=== PATIENT | female | born 1990 | race Caucasian/White ===

== ENCOUNTER → 2019-12-07 10:12 | Outpatient (BNVA) | payer MEDICARE, MEDICAID, SELFPAY | PROVIDERS: Family Provider Family Medicine; PCP Family Medicine; Visit Provider Nurse Practitioner Family | DX: Z78.9 Other specified health status (principal) | CPT/HCPCS: 71046; 80053; 80061; 81025; 84443; 85025 ==

== ENCOUNTER → 2020-11-01 11:24 | Outpatient (BNVA) | payer MEDICARE, MEDICAID, SELFPAY | PROVIDERS: Family Provider Family Medicine; PCP Nurse Practitioner Family; Visit Provider Nurse Practitioner Family | DX: Z20.828 Contact with and (suspected) exposure to other viral communicable diseases (principal); J06.9 Acute upper respiratory infection, unspecified; Z30.42 Encounter for surveillance of injectable contraceptive | CPT/HCPCS: 87635 ==

== ENCOUNTER → 2020-12-11 10:15 | Outpatient (BNVA) | payer MEDICARE, MEDICAID, SELFPAY | PROVIDERS: Family Provider Family Medicine; PCP Nurse Practitioner Family; Visit Provider Nurse Practitioner Family | DX: Z30.42 Encounter for surveillance of injectable contraceptive (principal); Z13.6 Encounter for screening for cardiovascular disorders; Z00.00 Encounter for general adult medical examination without abnormal findings; Z68.37 Body mass index [BMI] 37.0-37.9, adult | CPT/HCPCS: 80053; 80061; 84443; 85025 ==

== ENCOUNTER → 2021-07-16 10:04 | Outpatient (BNVA) | payer MEDICARE, MEDICAID, SELFPAY | PROVIDERS: Family Provider Family Medicine; PCP Nurse Practitioner Family; Visit Provider Nurse Practitioner Family | DX: Z00.00 Encounter for general adult medical examination without abnormal findings (principal); F60.9 Personality disorder, unspecified; F31.9 Bipolar disorder, unspecified; Z79.899 Other long term (current) drug therapy | CPT/HCPCS: 80053; 80061; 85025 ==

== ENCOUNTER → 2021-12-11 09:56 | Outpatient (BNVA) | payer MEDICARE, MEDICAID, SELFPAY | PROVIDERS: Family Provider Family Medicine; PCP Nurse Practitioner Family; Visit Provider Nurse Practitioner Family | DX: R76.11 Nonspecific reaction to tuberculin skin test without active tuberculosis (principal) | CPT/HCPCS: 71046 ==

== ENCOUNTER → 2022-01-01 08:39 | Outpatient (BNVA) | payer MEDICARE, MEDICAID, SELFPAY | PROVIDERS: Family Provider Family Medicine; PCP Nurse Practitioner Family; Visit Provider Nurse Practitioner Family | DX: Z00.00 Encounter for general adult medical examination without abnormal findings (principal); Z13.6 Encounter for screening for cardiovascular disorders; Z30.42 Encounter for surveillance of injectable contraceptive | CPT/HCPCS: 80053; 80061; 85025 ==

== ENCOUNTER → 2022-12-11 09:35 | Outpatient (BNVA) | payer MEDICARE, MEDICAID, SELFPAY | PROVIDERS: Family Provider Family Medicine; PCP Nurse Practitioner Family; Visit Provider Nurse Practitioner Family | DX: Z01.419 Encounter for gynecological examination (general) (routine) without abnormal findings; Z13.6 Encounter for screening for cardiovascular disorders; F41.9 Anxiety disorder, unspecified; F32.A Depression, unspecified | CPT/HCPCS: 71046; 80053; 80061; 84443; 85025; 88175 ==

== ENCOUNTER → 2023-05-28 11:35 | Outpatient (BNVA) | payer MEDICARE, MEDICAID, SELFPAY | PROVIDERS: Family Provider Family Medicine; PCP Nurse Practitioner Family; Visit Provider Nurse Practitioner Family | DX: Z13.6 Encounter for screening for cardiovascular disorders (principal); F31.9 Bipolar disorder, unspecified; F60.9 Personality disorder, unspecified | CPT/HCPCS: 80053; 80061; 85025 ==

== ENCOUNTER → 2023-12-13 10:14 | Outpatient (BNVA) | payer MEDICARE, MEDICAID, SELFPAY | PROVIDERS: Family Provider Family Medicine; PCP Nurse Practitioner Family; Visit Provider Nurse Practitioner Family | DX: Z00.00 Encounter for general adult medical examination without abnormal findings (principal); Z13.6 Encounter for screening for cardiovascular disorders | CPT/HCPCS: 71046; 71047; 80053; 80061; 85025 ==

== ENCOUNTER → 2024-02-22 10:25 | Outpatient (BNVA) | payer MEDICARE, MEDICAID, SELFPAY | PROVIDERS: Family Provider Family Medicine; PCP Nurse Practitioner Family; Visit Provider Nurse Practitioner Family | DX: Z30.42 Encounter for surveillance of injectable contraceptive (principal) | CPT/HCPCS: 81025 ==

== ENCOUNTER → 2024-05-16 09:34 | Outpatient (BNVA) | payer MEDICARE, MEDICAID, SELFPAY | PROVIDERS: Family Provider Family Medicine; PCP Nurse Practitioner Family; Visit Provider Nurse Practitioner Family | DX: Z13.6 Encounter for screening for cardiovascular disorders (principal) | CPT/HCPCS: 80053; 80061; 81025; 85025 ==

== ENCOUNTER 2024-06-21 11:35 | Emergency (ER) | payer MEDICARE, MEDICAID, SELFPAY ==
--- NOTE | 2024-06-21 11:35 | ECG_ITS ---
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
[2024-06-21 11:37] VITALS: BP 110/85; PULSE 98; RESP 18; TEMP 37.2; O2SAT 96; BMI 37.8
--- NOTE | 2024-06-21 11:39 | XRR_ITS ---
PROCEDURE INFORMATION: Exam: XR Chest Exam date and time: 06/21/2024 11:48 AM Age: 33 years old Clinical indication: Pain; Angina pectoris; Additional info: Cp TECHNIQUE: Imaging protocol: Radiologic exam of the chest. Views: 1 view. COMPARISON: CR XR chest 3V [id number] 12/13/2023 10:18 AM FINDINGS: Lungs: Unremarkable. No consolidation. Pleural spaces: Unremarkable. No pleural effusion. No pneumothorax. Heart/Mediastinum: Unremarkable. No cardiomegaly. Bones/joints: Unremarkable. XR/XR chest 1V portable [id number] IMPRESSION: No acute findings.
--- NOTE | 2024-06-21 11:41 | ED_ITS ---
HPI - Chest Pain 2 General: Chief Complaint: Chest Pain Stated Complaint: Chest pain , High BP, Dizzy Time Seen by Provider: 06/21/24 11:36 Source: EMS Mode of arrival: EMS Limitations: no limitations History of Present Illness: 33-year-old female is here from [facility] for last 2 days she has been having some chest pain with some pain with deep inspiration. She had a mild headache as well states pain is currently a 6 out of 10 she received nitro aspirin and route denies any improvement. Denies any cough or fever. Associated symptoms: Deny abdominal pain, dyspnea, fever(s), nausea or vomiting Related Data Home Medications Medication Instructions Recorded Confirmed aripiprazole 15 mg tablet (Abilify) 15 mg PO QDAY 10/26/19 05/16/24 bupropion HCl 150 mg tablet,12 hr 150 mg PO QAM 10/26/19 05/16/24 sustained-release (Wellbutrin SR) escitalopram oxalate 20 mg tablet 20 mg PO QDAY 10/26/19 05/16/24 (Lexapro) risperidone 3 mg tablet (Risperdal) 3 mg PO QDAY 10/26/19 05/16/24 Previous Rx's Medication Instructions Recorded acetaminophen 325 mg tablet See Rx Instructions .Route 12/13/23 .COMPLEX #60 tabs albuterol sulfate 90 mcg/actuation 2 puff inhalation QID PRN 12/13/23 aerosol inhaler (Ventolin HFA) shortness of breath or wheezing #18 grams benzocaine 20 %-menthol 0.1 %-zinc 1 ea mucous membrane .every six 12/13/23 chloride 0.15 % mucosal gel hours PRN mouth pain #5.1 grams (Orajel 3X Mouth Sores) bismuth subsalicylate 525 mg/15 mL 525 mg (15 mL) PO Q30M PRN 12/13/23 oral suspension (Pepto-Bismol Max diarrhea #[address]) calcium carbonate 300 mg PO BID #60 tabs 12/13/23 cetirizine 10 mg tablet (Zyrtec) 10 mg PO DAILY PRN allergy 12/13/23 symptoms #30 tabs dextromethorphan-guaifenesin 5 10 ml PO Q6H PRN cough #200 mL 12/13/23 mg-100 mg/5 mL oral liquid (Robitussin Cough-Chest Congestion DM) diphenhydramine HCl 25 mg capsule 50 mg (2 x 25 mg) PO Q6H PRN 12/13/23 (Benadryl) itching #60 caps ibuprofen 200 mg capsule 400 mg (2 x 200 mg) PO Q6H PRN 12/13/23 fever or pain #100 caps magnesium hydroxide 400 mg/5 mL 15 ml PO QID PRN constipation #355 12/13/23 oral suspension mL medroxyprogesterone 150 mg/mL See Rx Instructions .Route 12/13/23 intramuscular suspension .COMPLEX #1 mL polyvinyl alcohol-povidone 0.5 2 drp ophthalmic (eye) QID PRN dry 12/13/23 %-0.6 % eye drops (Artificial eye(s) #15 mL Tears (polyvinyl alcohol/povidone)) One Daily Wmn Tab 21st 100 See Rx Instructions .Route 12/28/23 .COMPLEX #100 ea Allergies Allergy/AdvReac Type Severity Reaction Status Date / Time tuberculin,PPD,multi-puncture Allergy Unknown Verified 02/22/24 10:19 Review of Systems 2 Const: Denies: fever(s), chills, body aches or change in appetite ENMT: Denies: throat pain or dental pain Card: Reports: chest pain Resp: Denies: dyspnea GI: Denies: abdominal pain, nausea, vomiting or diarrhea Musc: Denies: neck pain or back pain Skin/Breast: Denies: rash Neuro: Reports: headache(s) PFSH ED 2 PFSH: Medical History (Updated 06/21/24 @ 14:28 by Dionicio Flores MD) Depot contraception Radial head fracture Social History Smoking and tobacco/nicotine status: never used tobacco/nicotine Second hand smoke exposure: No Alcohol intake: never Substance/Drug Use: never Caregiver/support person: Yes Lives independently: No Housing: Other Details: [facility] Marital status: Single service: No Current occupational status: disabled Current gender identity: Female Physical Exam 2 Const: COMMON NORMALS: no acute distress, patient oriented x3 and healthy appearing HENMT: COMMON NORMALS: normocephalic and atraumatic HEAD & SCALP: n ormocephalic and atraumatic Neck/C-Spine: COMMON NORMALS: full ROM and supple Chest: COMMONS NORMALS: normal inspection of the chest Resp: COMMON NORMALS: normal respiratory effort, No retractions, No use of accessory muscles and clear to auscultation bilaterally AUSCULTATION: clear to auscultation bilaterally Cardio: COMMON NORMALS: regular rate, regular rhythm and No murmurs present (Cardio) RATE: regular rate RHYTHM: regular rhythm GI: COMMON NORMALS: Normal to inspection, nondistended, normoactive bowel sounds present, Soft to palpation, non-tender and no masses PALPATION: Yes Soft to palpation Extremity: COMMON NORMALS: normal to inspection and full ROM Neuro: COMMON NORMALS: patient oriented x3, moves all extremities and no focal motor deficits Psych: COMMON NORMALS: mental status grossly normal, Normal thought process present and cooperative THOUGHT PROCESS: Normal thought process present Skin: COMMON NORMALS: no rashes or lesions noted and no wounds GENERAL SKIN EXAM: no rashes or lesions noted Course 2 Vital Signs: Vital signs: Vital Signs Temperature 98.9 F 06/21/24 11:37 Pulse Rate 98 06/21/24 11:37 Respiratory Rate 18 06/21/24 12:07 Blood Pressure 110/85 06/21/24 11:37 Pulse Oximetry 96 06/21/24 11:37 Oxygen Delivery Me thod Room Air 06/21/24 11:37 MDM - Chest Pain Medical Decision Making Patient presents here with chest pains atypical in nature patient's troponin and CT scan here are all normal her pains improved she stable for discharge follow- up PCP return if worsening. Medical Records I reviewed the patient's medical records. Lab Data I reviewed the patient's lab results. 06/21/24 11:51 06/21/24 11:51 Radiology Impressions Chest X-Ray 06/21/24 11:39 IMPRESSION: No acute findings. Chest CTA 06/21/24 12:38 IMPRESSION: No evidence of pulmonary embolus. Laboratory Results WBC 10.22 10^3/uL (3.29-11.43) 06/21/24 11:51 RBC 4.97 10^6/uL (3.85-5.65) 06/21/24 11:51 Hgb 14.10 g/dL (11.27-16.99) 06/21/24 11:51 Hct 43.6 % (36-47) 06/21/24 11:51 MCV 87.7 fl (85-98) 06/21/24 11:51 MCH 28.4 pg (27-33) 06/21/24 11:51 MCHC 32.3 g/dL (30-55) 06/21/24 11:51 RDW 14.9 % (12.1-15.1) 06/21/24 11:51 Plt Count 261 10^3/cmm (157-399) 06/21/24 11:51 MPV 8.5 fL (7.4-10.4) 06/21/24 11:51 Neut % (Auto) 60.6 % 06/21/24 11:51 Lymph % (Auto) 31.4 % 06/21/24 11:51 Foard % (Auto) 5.2 % 06/21/24 11:51 Eos % (Auto) 2.1 % 06/21/24 11:51 Baso % (Auto) 0.4 % 06/21/24 11:51 Neut # (Auto) 6.20 10^3/uL (1.8-7.7) 06/21/24 11:51 Lymph # (Auto) 3.2 10^3/uL (0.8-4.8) 06/21/24 11:51 Foard # (Auto) 0.5 10^3/uL (0.2-0.9) 06/21/24 11:51 Eos # (Auto) 0.2 10^3/uL (0.0-0.8) 06/21/24 11:51 Baso # (Auto) 0.0 10^3/uL (0.0-0.1) 06/21/24 11:51 Nucleated RBC % (auto) 0 % 06/21/24 11:51 Nucleated RBCs # 0.0 /100WBC 06/21/24 11:51 PT 13.30 SECONDS (12.1-14.9) 06/21/24 11:51 INR 0.98 (0.8-1.2) 06/21/24 11:51 D-Dimer 0.77 ug/mLFEU (0-0.59) H 06/21/24 11:51 Sodium 136 mmol/L (136-145) 06/21/24 11:51 Potassium 3.9 mmol/L (3.5-5.1) 06/21/24 11:51 Chloride 104 mmol/L (98-107) 06/21/24 11:51 Carbon Dioxide 17 mmol/L (22-29) L 06/21/24 11:51 Anion Gap 18.9 (5-19) 06/21/24 11:51 BUN 10 mg/dL (6-20) 06/21/24 11:51 Creatinine 0.6 mg/dL (0.5-0.9) 06/21/24 11:51 GFR Calculation 114.4 mL/min (90-130) 06/21/24 11:51 Glucose 156 mg/dL (65-115) H 06/21/24 11:51 Calculated Osmolality 284 mOsm/kg (285-295) L 06/21/24 11:51 Calcium 8.2 mg/dL (8.5-10.5) L 06/21/24 11:51 Total Bilirubin 0.3 mg/dL (0.15-1.2) 06/21/24 11:51 AST 14 U/L (0-32) 06/21/24 11:51 ALT 19 U/L (0-33) 06/21/24 11:51 Alkaline Phosphatase 76 U/L (35-105) 06/21/24 11:51 Troponin T Baseline < 6 ng/L (0-10) 06/21/24 11:51 Troponin T 120 Minute 6.34 ng/L (0-10) 06/21/24 13:56 Delta Troponin T 0.06679 ABS# (0-10) 06/21/24 13:56 Total Protein 7.2 g/dL (6.6-8.7) 06/21/24 11:51 Albumin 4.0 g/dL (3.5-5.2) 06/21/24 11:51 Globulin 3.2 g/dL (1.3-4.6) 06/21/24 11:51 Lipase 32 U/L (13-60) 06/21/24 11:51 HCG, Qual Negative (Negative) 06/21/24 11:51 All radiology interpretation(s) finalized by discharge EKG Data EKG 1: I personally reviewed and interpreted this EKG as follows: EKG interpretation date: 06/21/24 EKG interpretation time: 11:35 Interpretation: sinus tach hr [address] or t wave abnormalities qrs 76 qtc 402 Discharge Plan Discharge Patient Disposition: Home Clinical Impression: Chest pain Condition: Stable Prescriptions: No Action risperidone [Risperdal] 3 mg tablet 3 mg PO QDAY escitalopram oxalate [Lexapro] 20 mg tablet 20 mg PO QDAY aripiprazole [Abilify] 15 mg tablet 15 mg PO QDAY bupropion HCl [Wellbutrin SR] 150 mg tablet sustained-release 12 hr 150 mg PO QAM Artificial Tears(pvalch-povid) 0.5-0.6 % drops 2 drp ophthalmic (eye) QID PRN (Reason: dry eye(s)) Qty: 15 2RF ibuprofen 200 mg capsule 400 mg PO Q6H PRN (Reason: fever or pain) Qty: 100 5RF acetaminophen 325 mg tablet See Rx Instructions .ROUTE .COMPLEX Qty: 60 5RF Dose Instruction: take 650 MG (2 x 325) BY MOUTH FOUR TIMES DAILY NEEDED FOR PAIN Rx Instructions: take 650 MG (2 x 325) BY MOUTH FOUR TIMES DAILY NEEDED FOR PAIN Pepto-Bismol Max St 525 mg/15 mL suspension 525 mg PO Q30M PRN (Reason: diarrhea) Qty: 236 3RF cetirizine [Zyrtec] 10 mg tablet 10 mg PO DAILY PRN (Reason: allergy symptoms) Qty: 30 11RF diphenhydramine HCl [Benadryl] 25 mg capsule 50 mg PO Q6H PRN (Reason: itching) Qty: 60 5RF Robitussin Cough-Chest Donte DM 5-100 mg/5 mL liquid 10 ml PO Q6H PRN (Reason: cough) Qty: 200 3RF albuterol sulfate [Ventolin HFA] 90 mcg/actuation HFA aerosol inhaler 2 puff INHALATION QID PRN (Reason: shortness of breath or wheezing) Qty: 18 2RF calcium carbonate 300 mg (750 mg) tablet,chewable 300 mg PO BID Qty: 60 5RF Orajel 3X Mouth Sores 20-0.1-0.15 % gel 1 ea mucous membrane .every six hours PRN (Reason: mouth pain) Qty: 5.1 2RF magnesium hydroxide 400 mg/5 mL suspension 15 ml PO QID PRN (Reason: constipation) Qty: 355 2RF Rx Instructions: if no BM in 3 days medroxyprogesterone 150 mg/mL suspension See Rx Instructions .ROUTE .COMPLEX Qty: 1 4RF Dose Instruction: INJECT INTRAMUSCULARLY one ML (=150mg) every THREE MONTHS FOR contraception Rx Instructions: INJECT INTRAMUSCULARLY one ML (=150mg) every THREE MONTHS FOR contraception One Daily Wmn Tab 21st 100 See Rx Instructions .ROUTE .COMPLEX Qty: 100 3RF Dose Instruction: TAKE ONE TABLET BY MOUTH EVERY DAY Rx Instructions: TAKE ONE TABLET BY MOUTH EVERY DAY Discharge Orders: Discharge ED (Routine); Ordered 06/21/24 Ordered By: Dionicio Flores Referrals: Nickie Jc FNP [Primary Care Provider] - Sadaf Dillon MD [Family Provider] - Discharge Diet: Advance as tolerated Discharge Activity: Resume usual activity Patient Instructions: Chest Pain (ED) Coding Level of Care Code ED Botany Professor for Lisa Simmons
[2024-06-21 12:05] LABS: Basophils % 0.4 %; Eosinophils # 0.2 10^3/uL (0.0-0.8); Eosinophils % 2.1 %; Hematocrit 43.6 % (36-47); Lymphocytes # 3.2 10^3/uL (0.8-4.8); Lymphocytes % 31.4 %; Mean Corpuscular HGB Conc 32.3 g/dL (30-55); Mean Corpuscular Hemoglobin 28.4 pg (27-33); Mean Corpuscular Volume 87.7 fl (85-98); Mean Platelet Volume 8.5 fL (7.4-10.4); Monocytes # 0.5 10^3/uL (0.2-0.9); Monocytes % 5.2 %; Neutrophils % 60.6 %; Nucleated Red Blood Cells % 0 %; Platelet Count 261 10^3/cmm (157-399); Red Blood Count 4.97 10^6/uL (3.85-5.65); Red Cell Distribution Width 14.9 % (12.1-15.1); White Blood Count 10.22 10^3/uL (3.29-11.43)
[2024-06-21 12:07] VITALS: RESP 18
[2024-06-21] MEDS: ondansetron 2 mg/ML SDV 2 mL 4 MG IVP (12:07)
[2024-06-21] MEDS: morphine 4 mg/mL SDV 1 mL IVP (12:07)
[2024-06-21 12:23] LABS: INR 0.98 (0.8-1.2)
[2024-06-21 12:26] LABS: D Dimer 0.77 ug/mLFEU (0-0.59)
[2024-06-21 12:29] LABS: Alanine Aminotransferase 19 U/L (0-33); Alkaline Phosphatase 76 U/L (35-105); Anion Gap 18.9 (5-19); Aspartate Amino Transferase 14 U/L (0-32); Blood Urea Nitrogen 10 mg/dL (6-20); Calcium 8.2 mg/dL (8.5-10.5); Carbon Dioxide 17 mmol/L (22-29); Chloride 104 mmol/L (98-107); Creatinine Clr Calc Pharmacy 151.7017; Globulin 3.2 g/dL (1.3-4.6); Glomerular Filtration Rate 114.4 mL/min (90-130); Glucose 156 mg/dL (65-115); Lipase 32 U/L (13-60); Osmolality Calculated 284 mOsm/kg (285-295); Potassium 3.9 mmol/L (3.5-5.1); Sodium 136 mmol/L (136-145); Total Bilirubin 0.3 mg/dL (0.15-1.2); Total Protein 7.2 g/dL (6.6-8.7)
[2024-06-21 12:31] LABS: Troponin(5th) Baseline < 6 ng/L (0-10)
[2024-06-21 12:33] LABS: HCG, Serum Qual Negative (Negative)
--- NOTE | 2024-06-21 12:38 | CT_ITS ---
WS: [id number] CTA OF THE CHEST WITH PULMONARY EMBOLISM PROTOCOL TECHNIQUE: High-resolution contrast enhanced CTA of the chest with coronal and sagittal reformatted i mages with pulmonary embolism protocol. MIP images are also reviewed. CLINICAL INFORMATION: sob COMPARISON: None. DLP: 391.[address] scans at [facility] use at least one of these dose optimization techniques: automated e xposure control; mA and/or kV adjustment per patient size (includes targeted exams where dose is matc hed to clinical indication); or iterative reconstruction. FINDINGS: Proximal main pulmonary arteries are normal. Normal segmental and subsegmental pulmonary arteries. N o evidence of pulmonary embolus. Normal caliber thoracic aorta. Adrenal glands are normal. Hepatomegaly. Mild splenomegaly. Small esop hageal hiatal hernia. Apparent RIGHT subclavian artery. Slight bibasal atelectasis. CT/CT angio chest PE protcl [id number] IMPRESSION: No evidence of pulmonary embolus.
[2024-06-21] MEDS: iohexol 350 mg/mL 500 mL Btl (per mL) IV (13:14)
[2024-06-21] MEDS: sodium chloride 0.9% 1,000 ML 999 ML IV (13:26)
--- NOTE | 2024-06-21 13:39 | ECG_ITS ---
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
[2024-06-21 14:23] LABS: Troponin 5 2HR 6.34 ng/L (0-10); Troponin 5 2HR Delta 0.34001 ABS# (0-10)
[2024-06-21 14:48] VITALS: BP 130/88; PULSE 85; O2SAT 98
== END 2024-06-21 14:50 | disposition home or self-care (01) ==
PROVIDERS: Emergency Provider Emergency Medicine; Family Provider Family Medicine; PCP Nurse Practitioner Family
DX: R07.9 Chest pain, unspecified (principal); R00.0 Tachycardia, unspecified
CPT/HCPCS: 36415; 71045; 71275; 80053; 83690; 84484; 84703; 85025; 85378; 85610; 93005; 96374; 96375; 99285; J2270; J2405; J7030

== ENCOUNTER → 2024-08-11 14:36 | Outpatient (BNVA) | payer MEDICARE, MEDICAID, SELFPAY | PROVIDERS: Family Provider Family Medicine; PCP Nurse Practitioner Family; Visit Provider Nurse Practitioner Family | DX: Z30.42 Encounter for surveillance of injectable contraceptive (principal) | CPT/HCPCS: 81025 ==

== ENCOUNTER → 2024-12-27 13:14 | Outpatient (BNVA) | payer MEDICARE, MEDICAID, SELFPAY | PROVIDERS: PCP Nurse Practitioner Family; Visit Provider Nurse Practitioner Family | DX: Z00.00 Encounter for general adult medical examination without abnormal findings (principal); Z13.6 Encounter for screening for cardiovascular disorders; Z30.42 Encounter for surveillance of injectable contraceptive; S52.123A Displaced fracture of head of unspecified radius, initial encounter for closed fracture | CPT/HCPCS: 80053; 80061; 84443; 85025 ==

== ENCOUNTER → 2025-01-02 09:01 | Outpatient (BNVA) | payer MEDICARE, MEDICAID, SELFPAY | PROVIDERS: PCP Nurse Practitioner Family; Visit Provider Nurse Practitioner Family | DX: Z11.1 Encounter for screening for respiratory tuberculosis (principal) | CPT/HCPCS: 71046 ==

== ENCOUNTER → 2025-01-24 10:15 | Outpatient (BNVA) | payer MEDICARE, MEDICAID, SELFPAY | PROVIDERS: PCP Nurse Practitioner Family; Visit Provider Nurse Practitioner Family | DX: R76.11 Nonspecific reaction to tuberculin skin test without active tuberculosis (principal); Z30.42 Encounter for surveillance of injectable contraceptive | CPT/HCPCS: 71046; 81025 ==

== ENCOUNTER → 2025-07-17 10:28 | Outpatient (BNVA) | payer MEDICARE, MEDICAID, SELFPAY | PROVIDERS: PCP Nurse Practitioner Family; Visit Provider Nurse Practitioner Family | DX: Z13.6 Encounter for screening for cardiovascular disorders (principal) | CPT/HCPCS: 80061 ==